=== PATIENT | male | born 1930 | race Caucasian/White ===

== ENCOUNTER 2017-03-14 08:32 | Inpatient (IN) | payer MEDICARE ==
[~2017-03-14] VITALS: Ht 182.9 cm; Wt 75.7 kg
[~2017-03-14 08:32] MED LIST: ASPI-612 PO
[2017-03-14] MEDS ORDERED: ONDANSETRON PF 4 MG/2 ML VIAL. IV ONE (08:45)
[2017-03-14] MEDS ORDERED: IV NORMAL SALINE 1000ML BAG 1,000 ML IV ONE ×2 (08:45→11:00)
--- NOTE | 2017-03-14 09:17 | PHYS DOC ---
Past Medical History Past Medical History: Arthritis, Cancer, Hypertension Past Surgical History: Cholecystectomy, Other Additional Past Surgical Histo: back surgery, pin right arm Alcohol Use: Occasionally Drug Use: None Adult General Chief Complaint Chief Complaint: HEADACHE HPI HPI Patient is a 86 year old male with a history of TIA, hypertension, who presents today with a 6 out of 10 throbbing frontal headache that began this morning around 6:30 when he was getting out of bed. Patient states this headache is similar to the last time he had a stroke in 2013. Patient denies any vision changes, denies any new weakness. Denies any nausea vomiting but after the ED for a few minutes he started vomiting. Denies any chest pain or shortness of breath. Review of Systems Review of Systems Constitutional: Denies fever or chills [] Eyes: Denies change in visual acuity, redness, or eye pain [] HENT: Denies nasal congestion or sore throat [] Respiratory: Denies cough or shortness of breath [] Cardiovascular: No additional information not addressed in HPI [] GI: Patient is actively vomiting. Denies abdominal pain, bloody stools or diarrhea [] : Denies dysuria or hematuria [] Musculoskeletal: Denies back pain or joint pain [] Integument: Denies rash or skin lesions [] Neurologic: Reports frontal headache, denies focal weakness or sensory changes [ ] Endocrine: Denies polyuria or polydipsia [] Current Medications Current Medications Current Medications Medications (Trade) Dose Ordered Sig/Marlon Start Time Stop Time Status Last Admin Dose Admin Amlodipine Besylate (Norvasc) 10 mg 1X ONCE 03/14/17 09:30 03/14/17 09:33 DC 03/14/17 09:43 10 MG Ondansetron HCl (Zofran) 4 mg 1X ONCE 03/14/17 08:45 03/14/17 08:49 DC 03/14/17 09:42 4 MG Sodium Chloride 1,000 ml @ 1,000 mls/hr 1X ONCE 03/14/17 08:45 03/14/17 09:44 DC 03/14/17 09:42 1,000 MLS/HR Allergies Allergies Allergies Coded Allergies Type Severity Reaction Last Updated Verified No Known Drug Allergies 02/09/14 No Physical Exam Physical Exam Constitutional: Well developed, well nourished, no acute distress, non-toxic appearance. [] HENT: Normocephalic, atraumatic, bilateral external ears normal, oropharynx moist, no oral exudates, nose normal. [] Eyes: PERRLA, EOMI, conjunctiva normal, no discharge. [] Neck: Normal range of motion, no tenderness, supple, no stridor. [] Cardiovascular:Heart rate regular rhythm, no murmur [] Lungs & Thorax: Bilateral breath sounds clear to auscultation [] Abdomen: Patient is actively vomiting on arrival to his room. Bowel sounds normal, soft, no tenderness, no masses, no pulsatile masses. [] Skin: Warm, dry, no erythema, no rash. [] Back: No tenderness, no CVA tenderness. [] Extremities: No tenderness, no cyanosis, no clubbing, ROM intact, no edema. [] Neurologic: Alert and oriented X 3, normal motor function, normal sensory function, no focal deficits noted. Cranial nerves II through XII intact. 5 out of 5 bilateral upper and lower extremity strength. Psychologic: Affect normal, judgement normal, mood normal. [] Current Patient Data Vital Signs Vital Signs Date Time Temp Pulse Resp B/P (MAP) Pulse Ox O2 Delivery O2 Flow Rate FiO2 03/14/17 09:43 47 186/80 03/14/17 08:39 97.8 16 100 Room Air 97.8 Lab Values Laboratory Tests Test 03/14/17 08:55 White Blood Count 9.0 x10^3/uL (4.0-11.0) Red Blood Count 3.71 x10^6/uL (4.30-5.70) L Hemoglobin 11.8 g/dL (13.0-17.5) L Hematocrit 34.7 % (39.0-53.0) L Mean Corpuscular Volume 94 fL (79-100) Mean Corpuscular Hemoglobin 32 pg (25-35) Mean Corpuscular Hemoglobin Concent 34 g/dL (31-37) Red Cell Distribution Width 13.9 % (11.5-14.5) Platelet Count 178 x10^3/uL (140-400) Neutrophils (%) (Auto) 77 % (31-73) H Lymphocytes (%) (Auto) 13 % (24-48) L Monocytes (%) (Auto) 8 % (0-9) Eosinophils (%) (Auto) 2 % (0-3) Basophils (%) (Auto) 1 % (0-3) Neutrophils # (Auto) 7.0 x10^3uL (1.8-7.7) Lymphocytes # (Auto) 1.1 x10^3/uL (1.0-4.8) Monocytes # (Auto) 0.7 x10^3/uL (0.0-1.1) Eosinophils # (Auto) 0.2 x10^3/uL (0.0-0.7) Basophils # (Auto) 0.0 x10^3/uL (0.0-0.2) Prothrombin Time 13.5 SEC (11.7-14.0) Prothrombin Time INR 1.1 (0.8-1.1) PTT 35 SEC (24-38) Sodium Level 134 mmol/L (136-145) L Potassium Level 3.8 mmol/L (3.5-5.1) Chloride Level 96 mmol/L (98-107) L Carbon Dioxide Level 29 mmol/L (21-32) Anion Gap 9 (6-14) Blood Urea Nitrogen 29 mg/dL (8-26) H Creatinine 1.4 mg/dL (0.7-1.3) H Estimated GFR (Cockcroft-Gault) 47.9 Glucose Level 112 mg/dL (70-99) H Calcium Level 9.7 mg/dL (8.5-10.1) Creatine Kinase 112 U/L (39-308) Creatine Kinase MB (Mass) 2.3 ng/mL (0.0-3.6) Creatine Kinase MB Relative Index 2.1 % (0-4) Troponin I Quantitative < 0.017 ng/mL (0.000-0.055) Laboratory Tests 03/14/17 08:55 Laboratory Tests 03/14/17 08:55 EKG EKG 08:42 Interpreted by , Sinus rhythm, HR 56, no STEMI.[] Radiology/Procedures Radiology/Procedures []PROCEDURE: CT CODE STROKE HEAD WO CT of the head without contrast, 03/14/2017: History: Headache, hypertension Comparison is made to a study from 02/09/2014. The ventricles are within normal limits in size. There is no shift of the midline structures. There is no evidence of acute intracranial hemorrhage or mass effect. There is a small unchanged lucency along the superior aspect of the right basal ganglia compatible with an old infarct. There is calcific plaquing of the distal internal carotid and vertebral arteries. IMPRESSION: 1. Small right basal ganglia region infarct. 2. No new intracranial abnormality is detected. PQRS Compliance Statement: One or more of the following individualized dose reduction techniques were utilized for this examination: 1. Automated exposure control 2. Adjustment of the mA and/or kV according to patient size 3. Use of iterative reconstruction technique DICTATED and SIGNED BY: BOBBY CELESTE MD DATE: 03/14/17910 CC: PRICILA BROOKS APRN; NESSA ROONEY Jr, MD ~ PROCEDURE: PORTABLE CHEST 1V Portable chest, 03/14/2017: History: Headache The heart size and pulmonary vascularity are normal. There is calcific plaquing of the aorta. No pulmonary infiltrates are seen. There is no evidence of pleural fluid. Moderate spurring is present in the spine. IMPRESSION: No acute cardiopulmonary abnormality is detected. DICTATED and SIGNED BY: BOBBY CELESTE MD DATE: 03/14/17915 CC: PRICILA BROOKS APRN; NESSA ROONEY Jr, MD ~ Course & Med Decision Making Course & Med Decision Making Pertinent Labs and Imaging studies reviewed. (See chart for details) This is a 86-year-old male patient presented to the ED today with a 6 out of 10 frontal headache that began this morning around 6:30. Patient has no neurological deficits but was vomiting when he got in his room. He was given Zofran and his vomiting stopped. 913 Ct head results from radiologist small old basal ganglion infarct otherwise no acute findings CBC no acute findings, BMP with creatinine of 1.4 with BUN of 29 likely dehydration related. Patient was started on IV fluids. Consulted with Dr. Kang who accepted patient for admission consult placed for neurologist. Dragon Disclaimer Dragon Disclaimer This electronic medical record was generated, in whole or in part, using a voice recognition dictation system. Departure Departure Impression: Primary Impression: Headache Additional Impressions: Accelerated hypertension Acute renal failure Disposition: ADMITTED INPATIENT Condition: STABLE Referrals: NESSA ROONEY Jr, MD (PCP) Problem Qualifiers Primary Impression: Headache Headache type: unspecified Headache chronicity pattern: acute headache Intractability: not intractable Qualified Codes: R51 - Headache Additional Impressions: Acute renal failure Acute renal failure type: unspecified Qualified Codes: N17.9 - Acute kidney failure, unspecified PRICILA BROOKS APRN Mar 14, 2017 09:17
[2017-03-14 09:21] LABS: BASO % 1 % (0-3); EOS % 2 % (0-3); HEMATOCRIT 34.7 % (39.0-53.0); HEMOGLOBIN 11.8 g/dL (13.0-17.5); LYMPH # 1.1 x10^3/uL (1.0-4.8); LYMPH % 13 % (24-48); MEAN CORPUSCULAR HEMOGLOBIN 32 pg (25-35); MEAN CORPUSCULAR HGB CONC 34 g/dL (31-37); MEAN CORPUSCULAR VOLUME 94 fL (79-100); MONO % 8 % (0-9); NEUT % 77 % (31-73); PLATELET COUNT 178 x10^3/uL (140-400); RED BLOOD COUNT 3.71 x10^6/uL (4.30-5.70); RED CELL DISTRIBUTION WIDTH 13.9 % (11.5-14.5)
[2017-03-14] MEDS ORDERED: amLODIPine BESYLATE 5 MG TABLET PO ONE (09:30)
[2017-03-14 09:32] LABS: CALCIUM 9.7 mg/dL (8.5-10.1); CREATININE 1.4 mg/dL (0.7-1.3); GFR 47.9; POTASSIUM 3.8 mmol/L (3.5-5.1)
[2017-03-14 09:40] LABS: INR 1.1 (0.8-1.1); PROTHROMBIN TIME PATIENT 13.5 SEC (11.7-14.0)
[2017-03-14 09:50] LABS: CKMB MASS 2.3 ng/mL (0.0-3.6)
[2017-03-14] MEDS ORDERED: ONDANSETRON PF 4 MG/2 ML VIAL. IV PRN (11:00)
[2017-03-14] MEDS ORDERED: ACETAMINOPHEN 325 MG TABLET. PO PRN (11:00)
--- NOTE | 2017-03-14 12:22 | RAD ---
MR of the brain, 03/14/2017: History: Headache, nausea and vomiting Imaging was performed in axial, sagittal and coronal planes utilizing a variety of imaging sequences including T1-weighted, T2-weighted, diffusion-weighted, FLAIR and T2* gradient-echo sequences. There is mild cerebral atrophy. The ventricles are within normal limits in size. There is no shift of the midline structures. There is a small focus of abnormal signal along the superior aspect of the right basal ganglia compatible with an old infarct. A couple of tiny foci of abnormal signal are seen in the deep white matter bilaterally on the FLAIR sequence. No restricted diffusion is seen in these regions. These are common findings in older patients and typically reflect chronic ischemic change related to the deep perforating arteries. The cerebellum and brainstem are unremarkable. No abnormal extra-axial fluid collection or mass is seen. IMPRESSION: 1. 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 2. Minimal deep white matter signal abnormalities compatible with chronic ischemic change. 3. No acute intracranial abnormality is detected.
[2017-03-14 12:30] VITALS: BP 146/67
--- NOTE | 2017-03-14 12:30 | EKG ---
[facility] [address] [place] [address] Test Date: 2017-03-14 Test Time: 08:48:25 Pat Name: ANDREZ TO Department: Room: 588 1 Gender: M Body Care Manager: : [id number] Requested By: PRICILA BROOKS Order Number: [id number] Reading MD: Andrez Jack Measurements Intervals [place] Rate: 56 P: 59 TX: 188 QRS: 22 QRSD: 86 T: 63 QT: 446 QTc: 433 Interpretive Statements SINUS RHYTHM T ABNORMALITY IN LATERAL LEADS RI6.01 Unconfirmed report Electronically Signed On 04-01-2017 17:23:44 CDT by Andrez Jack
[2017-03-14] MEDS ORDERED: SIMV20TA3 PO (13:38)
[2017-03-14] MEDS ORDERED: PENI500T PO (13:38)
[2017-03-14] MEDS ORDERED: AMLO5TAB2 PO (13:38)
[2017-03-14] MEDS ORDERED: OLME1TAB PO (13:38)
[2017-03-14] MEDS ORDERED: AMOX1TAB11 PO (13:38)
[2017-03-14 15:00] VITALS: BP 145/70
--- NOTE | 2017-03-14 15:22 | PDOC2 ---
NEUROLOGY CONSULT Date of Admission Date of Admission Full Report Dictated DATE: 03/14/17 TIME: 15:20 Current Medications Current Medications Current Medications Ondansetron HCl (Zofran) 4 mg 1X ONCE IV Last administered on 03/14/17 09:42 ; Start 03/14/17 at 08:45; Stop 03/14/17 at 08:49; Status DC Sodium Chloride 1,000 ml @ 1,000 mls/hr 1X ONCE IV Last administered on 09:42; Start 03/14/17 at 08:45; Stop 03/14/17 at 09:44; Status DC Amlodipine Besylate (Norvasc) 10 mg 1X ONCE PO Last administered on 03/14/17 09:43; Start 03/14/17 at 09:30; Stop 03/14/17 at 09:33; Status DC Ondansetron HCl (Zofran) 4 mg PRN Q8HRS PRN IV NAUSEA/VOMITING; Start 03/14/17 at 11:00; Stop 03/15/17 at 10:59 Acetaminophen (Tylenol) 650 mg PRN Q4HRS PRN PO FEVER; Start 03/14/17 at 11:00 ; Stop 03/15/17 at 10:59 Sodium Chloride 1,000 ml @ 75 mls/hr 1X ONCE IV Last administered on 13:23; Start 03/14/17 at 11:00; Stop 03/15/17 at 00:19 Active Scripts Active Aspirin Ec (Aspirin) 81 Mg Tablet.dr 1 Tab PO DAILY Reported Amox Tr-K Clv 875-125 Mg Tab (Amoxicillin/Potassium Clav) 1 Each Tablet 1 Tab PO BID 3 Days Simvastatin 20 Mg Tablet 20 Mg PO HS Olmesartan-Hctz 40-25 mg Tab (Olmesartan/Hydrochlorothiazide) 1 Each Tablet 1 Tab PO DAILY Amlodipine Besylate 5 Mg Tablet 5 Mg PO DAILY Allergies Allergies: Coded Allergies: No Known Drug Allergies (Unverified , 02/09/14) Vitals VITALS Vital Signs Date Time Temp Pulse Resp B/P (MAP) Pulse Ox O2 Delivery O2 Flow Rate FiO2 03/14/17 14:34 Room Air 03/14/17 12:30 97.7 50 16 146/67 (93) 97 97.7 Labs Labs Laboratory Tests Test 10/8/17 08:55 White Blood Count 9.0 x10^3/uL (4.0-11.0) Red Blood Count 3.71 x10^6/uL (4.30-5.70) Hemoglobin 11.8 g/dL (13.0-17.5) Hematocrit 34.7 % (39.0-53.0) Mean Corpuscular Volume 94 fL (79-100) Mean Corpuscular Hemoglobin 32 pg (25-35) Mean Corpuscular Hemoglobin Concent 34 g/dL (31-37) Red Cell Distribution Width 13.9 % (11.5-14.5) Platelet Count 178 x10^3/uL (140-400) Neutrophils (%) (Auto) 77 % (31-73) Lymphocytes (%) (Auto) 13 % (24-48) Monocytes (%) (Auto) 8 % (0-9) Eosinophils (%) (Auto) 2 % (0-3) Basophils (%) (Auto) 1 % (0-3) Neutrophils # (Auto) 7.0 x10^3uL (1.8-7.7) Lymphocytes # (Auto) 1.1 x10^3/uL (1.0-4.8) Monocytes # (Auto) 0.7 x10^3/uL (0.0-1.1) Eosinophils # (Auto) 0.2 x10^3/uL (0.0-0.7) Basophils # (Auto) 0.0 x10^3/uL (0.0-0.2) Prothrombin Time 13.5 SEC (11.7-14.0) Prothromb Time International Ratio 1.1 (0.8-1.1) Activated Partial Thromboplast Time 35 SEC (24-38) Sodium Level 134 mmol/L (136-145) Potassium Level 3.8 mmol/L (3.5-5.1) Chloride Level 96 mmol/L (98-107) Carbon Dioxide Level 29 mmol/L (21-32) Anion Gap 9 (6-14) Blood Urea Nitrogen 29 mg/dL (8-26) Creatinine 1.4 mg/dL (0.7-1.3) Estimated GFR (Cockcroft-Gault) 47.9 Glucose Level 112 mg/dL (70-99) Calcium Level 9.7 mg/dL (8.5-10.1) Creatine Kinase 112 U/L (39-308) Creatine Kinase MB (Mass) 2.3 ng/mL (0.0-3.6) Creatine Kinase MB Relative Index 2.1 % (0-4) Troponin I Quantitative < 0.017 ng/mL (0.000-0.055) Laboratory Tests Test 03/14/17 08:55 White Blood Count 9.0 x10^3/uL (4.0-11.0) Red Blood Count 3.71 x10^6/uL (4.30-5.70) Hemoglobin 11.8 g/dL (13.0-17.5) Hematocrit 34.7 % (39.0-53.0) Mean Corpuscular Volume 94 fL (79-100) Mean Corpuscular Hemoglobin 32 pg (25-35) Mean Corpuscular Hemoglobin Concent 34 g/dL (31-37) Red Cell Distribution Width 13.9 % (11.5-14.5) Platelet Count 178 x10^3/uL (140-400) Neutrophils (%) (Auto) 77 % (31-73) Lymphocytes (%) (Auto) 13 % (24-48) Monocytes (%) (Auto) 8 % (0-9) Eosinophils (%) (Auto) 2 % (0-3) Basophils (%) (Auto) 1 % (0-3) Neutrophils # (Auto) 7.0 x10^3uL (1.8-7.7) Lymphocytes # (Auto) 1.1 x10^3/uL (1.0-4.8) Monocytes # (Auto) 0.7 x10^3/uL (0.0-1.1) Eosinophils # (Auto) 0.2 x10^3/uL (0.0-0.7) Basophils # (Auto) 0.0 x10^3/uL (0.0-0.2) Prothrombin Time 13.5 SEC (11.7-14.0) Prothromb Time International Ratio 1.1 (0.8-1.1) Activated Partial Thromboplast Time 35 SEC (24-38) Sodium Level 134 mmol/L (136-145) Potassium Level 3.8 mmol/L (3.5-5.1) Chloride Level 96 mmol/L (98-107) Carbon Dioxide Level 29 mmol/L (21-32) Anion Gap 9 (6-14) Blood Urea Nitrogen 29 mg/dL (8-26) Creatinine 1.4 mg/dL (0.7-1.3) Estimated GFR (Cockcroft-Gault) 47.9 Glucose Level 112 mg/dL (70-99) Calcium Level 9.7 mg/dL (8.5-10.1) Creatine Kinase 112 U/L (39-308) Creatine Kinase MB (Mass) 2.3 ng/mL (0.0-3.6) Creatine Kinase MB Relative Index 2.1 % (0-4) Troponin I Quantitative < 0.017 ng/mL (0.000-0.055) Assessment/Plan Assessment/Plan Patient is a very pleasant 86-year-old man who awoke with headache. His blood pressure was critically elevated in the emergency room but has come down to a better range. He has neurologic evidence for an advanced peripheral polyneuropathy which likely contributes to his gait disturbance. He also has dizziness when he is upright which may be more of a disequilibrium. I will order orthostatic blood pressures. I have ordered labs to look into temporal arteritis, mixed connective tissue disease as well as deficiency states that could contribute to neuropathy. I'm relieved that the MRI brain did not reveal evidence for an acute process. The CT scan of the head did not reveal intracranial hemorrhage. I have asked physical therapy to evaluate and make recommendations regarding gait disturbance and safety. CAMPOS HO MD Mar 14, 2017 15:22
--- NOTE | 2017-03-14 16:07 | CONS ---
DATE OF CONSULTATION: 03/14/2017 REFERRING PHYSICIAN: Dr. Joseph. REASON FOR CONSULTATION: Severe headache and impaired balance. HISTORY OF PRESENT ILLNESS: The patient is a very pleasant 86-year-old man who presented to [facility] Emergency Room because of headache. He awoke this morning around 6:15 a.m. and noticed a bad headache when he turned. He put a cloth on his head and took some Tylenol. He waited a while but the headache did not respond and only seemed to worsen. He then took 2 Aleve, which also was equally not helpful. This was not associated with light or sound sensitivity. The pain was bifrontal. He did not have any nausea or vomiting. He has not recently been ill. He decided to come to the Emergency Room because he did experience a headache with a stroke that occurred 4 years ago. He notes residual weakness on the right side of his body from the stroke. He recovered fairly well. This headache has not been associated with focal numbness or weakness. He has had impaired balance for a number of years and this is no worse than usual. He will typically use a walking stick to get around. He has occasional falls, but tries to be careful. If he is going to fall, it is because he has tendency to go backwards. He denies any recent illness such as cough or cold. He does report longstanding prostate cancer, but this has not changed. He does receive Lupron injections every 3 months. PAST MEDICAL HISTORY: 1. Prostate cancer diagnosed in 05/1998. 2. Arthritis. 3. Hypertension. 4. Cholecystectomy. 5. Lower back surgery. 6. Pinning of the right arm. ALLERGIES: No known allergies to drugs. MEDICATIONS PRIOR TO ADMISSION: Amlodipine 5 mg, Augmentin 875 mg twice per day for a tooth infection, aspirin 81 mg, olmesartan/hydrochlorothiazide daily and simvastatin 20 mg. FAMILY HISTORY: His father of a myocardial infarction at 75 years of age. His mother at 84 years, possibly with heart disease. She had diffuse disabling arthritis. Prostate cancer runs strongly in his family. SOCIAL HISTORY: He is and has five children. He has many grandchildren and great grandchildren. Many were in the room as I was doing my evaluation. He is a lifelong nonsmoker. He rarely drinks alcohol and does not use recreational drugs. REVIEW OF SYSTEMS: He does not normally experience headaches. This was a bifrontal severe headache. He does not have associated photophobia, phonophobia, nausea, vomiting or any other sensitivities. He feels his vision is a little impaired, although it is helped by glasses. His hearing is slightly diminished. He has not had any nose or sinus trouble. He has not had any cognitive loss that he is aware of. He has been able to swallow without choking. He has not had shortness of breath, cough or cold. There has not been chest or abdominal pain. He does have some arthritic pain. He has had no fevers or rash. Denies any gastrointestinal or genitourinary complaints other than longstanding prostate cancer for which he is on Lupron. He reports that his PSAs have remained low. He does not complain of easy bruising or bleeding. He does complain of difficulty with balance for the last 5 years. He is not aware of any numbness. He denies any history of diabetes. He denies any psychiatric concerns. PHYSICAL EXAMINATION: VITAL SIGNS: The blood pressure was 146/67, pulse 50, respirations 16, temperature 97.7 degrees Fahrenheit. Oximetry was 97% on room air. His weight was 173 pounds and height 72 inches with a calculated body mass index of 23.5. GENERAL: He was alert, awake and cooperative. Speech was fluent and clear. He had a good fund of recent and remote knowledge. Attention and concentration was intact. He appeared well groomed and well nourished. He was well oriented. NEUROLOGIC: Examination of the cranial nerves revealed visual carrasco were full to confrontation. Extraocular movements were intact. The eyes were conjugate. Pursuit movements were smooth and saccadic eye movements were without dysmetria. There was no nystagmus. Pupils were 3 mm and reactive. Funduscopic exam did not reveal papilledema, exudate or hemorrhage. Facial sensation was intact bilaterally. The muscles of mastication and facial expression were powerful symmetrically. Hearing was intact to finger rub bilaterally. The palate arched symmetrically and the tongue was midline with full range of motion. Sternocleidomastoid and trapezius were powerful. Muscle bulk and tone was normal. There was no arm drift. There was bilateral leg drifting downwards. Power was full and symmetric in the upper extremities. In the lower extremities, hip flexion and extension and knee flexion and extension were fairly powerful bilaterally. There was weakness with dorsi and plantar flexion bilaterally. The right leg may have been slightly weaker than the left. Reflexes were 1/4 in the arms, but absent at the knees and ankles. The toes were not upgoing. Coordination testing with [id number], [id number], fine motor and rapid alternating movements was fairly well performed. The sensory exam was intact to pain, light touch, proprioception, graphesthesia, cold thermal and vibration in the upper extremities. Lower extremities had marked sensory shading. Vibration was perceived half way up the calf, but better at the knees. Cold thermal was better perceived 3/[address] up the calf. Sharp was better perceived at the level of the knee. Light touch was better perceived at the level of the knee. Proprioception was diminished in the feet. His sitting balance was very good. When he stood, he was off balance. He was able to take steps forward and backward with some balance support. He could not stand on heels or toes very well. He was too unstable for attempting tandem walk. He seemed unstable even for attempting Romberg stance. Auscultation of the carotid arteries did not reveal a bruit. Heart's rhythm was regular without a murmur. Peripheral pulse, radial was strong and regular in the left wrist, but the radial pulse was not palpable in the right wrist. The ulnar pulse was palpated. Compression of both vessels on the wrist with release then of the radial did not cause the hand to pink up, but release of the ulnar did. Peripheral pulses were not well palpated in the feet. He had coolness of his extremities. There was no edema or cyanosis, but the skin of the feet appeared somewhat wrinkled as if there had been edema that had recently resolved. LABORATORY DATA: CBC revealed a normal white blood cell count and platelet count. Hemoglobin was low at 11.8 and hematocrit at 34.7. Sodium was low at 134, potassium normal, chloride low at 96. BUN was 29 and creatinine elevated to 1.4 with a calculated GFR of 47.9. Glucose was elevated to 112. Calcium was normal. CPK and troponin were not elevated. PT/INR was 1.1 and PTT was 35. CT scan of the head was performed this morning and revealed a small right basal ganglia stroke, but no acute process. There was some calcified plaque involving the internal carotid and vertebral arteries. MRI of the brain was performed this afternoon, again revealing the old basal ganglia infarction. This was on the right side. There were a few foci of abnormal signal in the deep white matter seen on FLAIR. There was no evidence for an acute stroke. There was no tumor. Chest x-ray performed this morning revealed no acute cardiopulmonary process. IMPRESSION: The patient is a very pleasant 86-year-old man who presented initially with critically elevated blood pressure at 225/97. The blood pressure has come down to 146/67 at the most recent recording. It is possible the critical pressures could have contributed to some headache. He may have a toxic headache from a systemic virus. It is not clear if he has longstanding uncontrolled blood pressures. I do not, however, see evidence of stroke contributing to the situation. He has evidence of a prior stroke, but no evidence of an acute stroke. I am relieved that there is no hemorrhage or tumor as well. He has diffuse arthritis with limited range of motion of his neck and some tightness in the neck muscles, which may also contribute to the headache. His family expressed some concerns regarding dizziness. I will order orthostatic blood pressure measurements. He does have clinical evidence for a very advanced peripheral neuropathy, which likely contributes to his very impaired balance. He would likely be well served by a 4-wheel walker instead of a walking stick. His daughter who is a nurse at [facility] specifically requested a Cardiology consult. This may be a bit premature since there are no obvious cardiac issues, but I will leave this to the discretion of the admitting physician. We can consult Physical Therapy for assessment of gait. I will also order labs to look for reversible and treatable processes that might contribute to the peripheral polyneuropathy. I will also order sed rate and CRP to look for any evidence of a temporal arteritis or an inflammatory process. Order an LEONID to look for mixed connective tissue disease, which might contribute. I appreciate greatly being involved in his care. CAMPOS HO MD DR: LILIANA/sharon JOB#: [id number] / [id number] ANNMARIE Conde MD, URSULA MD SHI, FERILYN MD
[2017-03-14 16:09] LABS: FREE T4 1.02 ng/dL (0.76-1.46)
[2017-03-14] MEDS: amLODIPine BESYLATE 5 MG TABLET PO SCH (17:35)
[2017-03-14] MEDS: ASPIRIN ENTERIC COATED 81 MG TABLET.DR. PO SCH (17:42)
[2017-03-14] MEDS: hydroCHLOROthiazide 25 MG TABLET PO SCH (17:43)
[2017-03-14] MEDS: LOSARTAN POTASSIUM 50 MG TABLET. PO SCH (17:43)
[2017-03-14 19:00] VITALS: BP 135/57
--- NOTE | 2017-03-14 20:37 | HP ---
ADMIT DATE: 03/14/2017 CHIEF COMPLAINT: Severe headache and imbalance. HISTORY OF PRESENT ILLNESS: The patient is an 86-year-old gentleman who presented to the Emergency Room with severe headache. He relates that he typically does not have headaches, so that in itself is somewhat unusual. He however awoke this morning a little after 6 with a severe headache when he turned over in bed. Took some Tylenol, which really did not seem to help at all. After a while, took two Aleve, which was not yielding any results either. He was concerned as he had a stroke about 4 years ago, which was heralded by a severe headache and he feared same may be going on now. He however denies any new weakness or neurological deficit other than the headache. He has persistent mild right-sided weakness from this distant stroke. In the Emergency Room, he was found with hypertensive urgency and therefore admitted for further workup and management. PAST MEDICAL HISTORY: Prostate cancer, on Lupron and bisphosphonate, initially diagnosed in 1997; hypertension and arthritis status post lower back surgery as well as arm surgery. FAMILY HISTORY: Positive for CAD in father, possibly in mother as well. SOCIAL HISTORY: , living with his , 5 children are close by. Never smoked. Denies any toxic habits. ALLERGIES: No known drug allergies. MEDICATIONS: MAR reconciled with home medications. REVIEW OF SYSTEMS: The patient relates that his headache is now completely resolved after receiving medications in the Emergency Room. He denies any new neurological symptoms including vision changes, weakness or numbness. Rest of organ system review is negative. PHYSICAL EXAMINATION: VITAL SIGNS: From today show a blood pressure of 146/67, heart rate of 50, respiratory rate at 16. He is afebrile. GENERAL: This is an 86-year-old gentleman, well nourished, in no acute distress. Alert and oriented. HEENT: Shows no scleral icterus. NECK: Supple. LUNGS: Clear to auscultation. HEART: Slightly bradycardic. No murmurs appreciated. ABDOMEN: Has positive bowel sounds. Soft and nontender. EXTREMITIES: Show no edema. SKIN: Warm, soft and dry. LABORATORIES: CBC with the WBC of 9, hemoglobin 11.8 and platelets of 178. Chemistries with the BUN and creatinine of 29 and 1.4. Sodium at 134 and potassium 3.8. Troponin negative. TSH is 0.8. IMAGING: CT of the head in Emergency Room, noncontrast, was showing a small right basal ganglia region infarct. No new intracranial abnormality detected. ASSESSMENT AND PLAN: The patient is an 86-year-old gentleman who presents with severe headache of unknown etiology. Blood pressure in the Emergency Room was in the 180s, which really would not necessarily explain his headaches. These however have now resolved. Blood pressure likewise is back under control. We will await Neurology consult for further guidance. The patient is bradycardic as well, although apparently asymptomatic from that standpoint. We will obtain cardiology consult in the morning. The patient appears volume contracted by labs. We will hold hydrochlorothiazide portion of his blood pressure medications and reevaluate in the morning. ARASH LEE MD DR: UR/nts JOB#: [id number] / [id number] LAKSHMI Chadwick MD MTDD
[2017-03-14] MEDS ORDERED: SIMVASTATIN 20 MG TABLET PO SCH (21:00)
[2017-03-14 23:00] VITALS: BP 134/58
[2017-03-14] MEDS: POLYVINYL ALCOHOL 1.4% OPHTH SOLUTION 15ML BOTTLE. OU PRN (23:56)
[2017-03-15 03:00] VITALS: BP 149/57
[2017-03-15 03:50] LABS: BASO % 0 % (0-3); EOS % 2 % (0-3); HEMATOCRIT 30.4 % (39.0-53.0); HEMOGLOBIN 10.3 g/dL (13.0-17.5); LYMPH # 1.5 x10^3/uL (1.0-4.8); LYMPH % 23 % (24-48); MEAN CORPUSCULAR HEMOGLOBIN 32 pg (25-35); MEAN CORPUSCULAR HGB CONC 34 g/dL (31-37); MEAN CORPUSCULAR VOLUME 94 fL (79-100); MONO % 7 % (0-9); NEUT % 67 % (31-73); PLATELET COUNT 159 x10^3/uL (140-400); RED BLOOD COUNT 3.23 x10^6/uL (4.30-5.70); RED CELL DISTRIBUTION WIDTH 14.1 % (11.5-14.5); WHITE BLOOD COUNT 6.4 x10^3/uL (4.0-11.0)
[2017-03-15 04:12] LABS: ALBUMIN 3.4 g/dL (3.4-5.0); ALBUMIN/GLOBULIN RATIO 1.2 (1.0-1.7); CALCIUM 8.9 mg/dL (8.5-10.1); CREATININE 1.2 mg/dL (0.7-1.3); GFR 57.3; POTASSIUM 4.6 mmol/L (3.5-5.1); TOTAL BILIRUBIN 0.4 mg/dL (0.2-1.0); TOTAL PROTEIN 6.3 g/dL (6.4-8.2)
[2017-03-15] MEDS: POLYVINYL ALCOHOL 1.4% OPHTH SOLUTION 15ML BOTTLE. OU PRN (05:39)
[2017-03-15 07:00] VITALS: BP 119/76
[2017-03-15] MEDS: ASPIRIN ENTERIC COATED 81 MG TABLET.DR. PO SCH (08:48)
[2017-03-15] MEDS: amLODIPine BESYLATE 5 MG TABLET PO SCH (08:48)
[2017-03-15] MEDS: LOSARTAN POTASSIUM 50 MG TABLET. PO SCH (08:49)
[2017-03-15] MEDS: hydroCHLOROthiazide 25 MG TABLET PO SCH (08:49)
[2017-03-15 09:15] LABS: VITAMIN-B12 331 pg/mL (247-911)
[2017-03-15 10:13] LABS: FOLATE > 20.00 ng/ml (3.2-20.0)
[2017-03-15 11:00] VITALS: BP 141/70
--- NOTE | 2017-03-15 15:41 | PDOC ---
PROGRESS NOTES Assessment Assessment IMPRESSION: Hypertensive emergency, SBP 225 mmHg. Hypertensive encephalopathy. Headache. Dizziness. Gait instability. HTN HLD. 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 No evidence of acute CVA this time. RECOMMENDATIONS/PLAN: BP control. Continue ASA daily. He has been on 81 mg daily. Continue Zocor HS. Lab: see orders. FU with PCP. FU with neurology as needed. PAST MEDICAL HISTORY: 1. Prostate cancer diagnosed in 05/1998. 2. Arthritis. 3. Hypertension. 4. Cholecystectomy. 5. Lower back surgery. 6. Pinning of the right arm. ALLERGIES: No known allergies to drugs. MEDICATIONS PRIOR TO ADMISSION: Amlodipine 5 mg, Augmentin 875 mg twice per day for a tooth infection, aspirin 81 mg, olmesartan/hydrochlorothiazide daily and simvastatin 20 mg. FAMILY HISTORY: His father of a myocardial infarction at 75 years of age. His mother at 84 years, possibly with heart disease. She had diffuse disabling arthritis. Prostate cancer runs strongly in his family. SOCIAL HISTORY: He is and has five children. He has many grandchildren and great grandchildren. Many were in the room as I was doing my evaluation. He is a lifelong nonsmoker. He rarely drinks alcohol and does not use recreational drugs. REVIEW OF SYSTEMS: Constitutional: No malnutrition, weight loss, cachexia. Head: No traumatic brain or head injury. Skin: No edema, or rash. Ear: No infection. Eyes: No vision loss, or diplopia. Nose: No bleeding or purulent discharges. Hearing: Hearing loss. Neck: No injury. Cardiac: HTN, HLD Pulmonary: No COPD. GI: No GI Ulcer, GI bleeding Urinary/genital: No dysuria, incontinence, urinary retention. Endocrine: No cousin face, craniofacial dysmorphism, polydactyly. Skeletomuscular: No muscular atrophy, deformity. Neurological: see HP. Psychiatric: Denies drug use/abuse. Otherwise, not [id number] review of systems. PHYSICAL EXAMINATION: General appearance in no acute distress. HEENT: Normocephalic and nontraumatic. Eyes, nose, ears, and throat are unremarkable. Hearing decrease. Neck is supple. No lymphadenopathy. No Crepitus. Cardiovascular: S1, S2, regular rate and rhythm. Pulmonary: Clear to auscultation bilaterally. Abdomen: Bowel sounds are positive. Extremities: No rash, lesions, or edema. No restriction of range of motion NEUROLOGICAL EXAMINATION: Alert. Oriented to time, place and person. PERRL. EOMI. CN: no focal findings. Muscle tone: within normal. Muscle strength: 5 DTR: 2 Plantar reflex: Flexor response bilaterally Gait: not examined in bed.. Sensory exam: no abnormal findings. No cerebellar signs elicited. F-T-N test accurate. Objective Objective Vital Signs Date Time Temp Pulse Resp B/P (MAP) Pulse Ox O2 Delivery O2 Flow Rate FiO2 03/15/17 11:00 98.1 61 18 141/70 (93) 92 Room Air 98.1 Intake and Output 03/16/17 07:00 Intake Total 1000 ml Balance 1000 ml IV Total 1000 ml Vitals Signs Vitals VS - Last 72 Hours, by Label Date Time Temp Pulse Resp B/P (MAP) Pulse Ox O2 Delivery O2 Flow Rate FiO2 03/15/17 11:00 98.1 61 18 141/70 (93) 92 Room Air 98.1 03/15/17 08:49 67 119/76 03/15/17 08:48 67 119/76 03/15/17 07:00 97.7 67 18 119/76 (90) 96 Room Air 97.7 03/15/17 03:00 98.3 60 17 149/57 (87) 94 Room Air 98.3 03/14/17 23:00 98.3 95 18 134/58 (83) 95 Room Air 98.3 03/14/17 20:22 Room Air 03/14/17 19:00 97.0 62 19 135/57 (83) 96 Room Air 97.0 03/14/17 17:43 55 145/70 03/14/17 17:35 55 145/70 03/14/17 15:00 98.2 55 16 145/70 (95) 96 Room Air 98.2 03/14/17 14:34 Room Air 03/14/17 12:30 97.7 50 16 146/67 (93) 97 Room Air 97.7 03/14/17 11:00 52 21 95 03/14/17 10:30 46 16 97 03/14/17 10:00 48 18 98 03/14/17 09:43 47 186/80 03/14/17 09:30 48 20 98 03/14/17 08:39 97.8 53 16 225/97 (139) 100 Room Air 97.8 Laboratory Laboratory Laboratory Tests Test 03/15/17 03:10 White Blood Count 6.4 x10^3/uL (4.0-11.0) Red Blood Count 3.23 x10^6/uL (4.30-5.70) Hemoglobin 10.3 g/dL (13.0-17.5) Hematocrit 30.4 % (39.0-53.0) Mean Corpuscular Volume 94 fL (79-100) Mean Corpuscular Hemoglobin 32 pg (25-35) Mean Corpuscular Hemoglobin Concent 34 g/dL (31-37) Red Cell Distribution Width 14.1 % (11.5-14.5) Platelet Count 159 x10^3/uL (140-400) Neutrophils (%) (Auto) 67 % (31-73) Lymphocytes (%) (Auto) 23 % (24-48) Monocytes (%) (Auto) 7 % (0-9) Eosinophils (%) (Auto) 2 % (0-3) Basophils (%) (Auto) 0 % (0-3) Neutrophils # (Auto) 4.3 x10^3uL (1.8-7.7) Lymphocytes # (Auto) 1.5 x10^3/uL (1.0-4.8) Monocytes # (Auto) 0.5 x10^3/uL (0.0-1.1) Eosinophils # (Auto) 0.1 x10^3/uL (0.0-0.7) Basophils # (Auto) 0.0 x10^3/uL (0.0-0.2) Sodium Level 136 mmol/L (136-145) Potassium Level 4.6 mmol/L (3.5-5.1) Chloride Level 102 mmol/L (98-107) Carbon Dioxide Level 29 mmol/L (21-32) Anion Gap 5 (6-14) Blood Urea Nitrogen 22 mg/dL (8-26) Creatinine 1.2 mg/dL (0.7-1.3) Estimated GFR (Cockcroft-Gault) 57.3 BUN/Creatinine Ratio 18 (6-20) Glucose Level 101 mg/dL (70-99) Calcium Level 8.9 mg/dL (8.5-10.1) Total Bilirubin 0.4 mg/dL (0.2-1.0) Aspartate Amino Transf (AST/SGOT) 21 U/L (15-37) Alanine Aminotransferase (ALT/SGPT) 23 U/L (16-63) Alkaline Phosphatase 51 U/L (46-116) Total Protein 6.3 g/dL (6.4-8.2) Albumin 3.4 g/dL (3.4-5.0) Albumin/Globulin Ratio 1.2 (1.0-1.7) Medication Medications Current Medications Amlodipine Besylate (Norvasc) 5 mg DAILY PO Last administered on 03/15/17 08: 48; Start 03/14/17 at 18:00; Stop 03/15/17 at 15:13; Status DC Artificial Tears (Artificial Tears) 1 drop PRN Q15MIN PRN OU DRY EYE Last administered on 03/15/17 05:39; Start 03/14/17 at 23:30; Stop 03/15/17 at 15:13 ; Status DC Aspirin (Ecotrin) 81 mg DAILY PO Last administered on 03/15/17 08:48; Start 03/14/17 at 18:00; Stop 03/15/17 at 15:13; Status DC Hydrochlorothiazide (Hydrodiuril) 25 mg DAILY PO Last administered on 08:49; Start 03/14/17 at 18:00; Stop 03/15/17 at 15:13; Status DC Losartan Potassium (Cozaar) 100 mg DAILY PO Last administered on 03/15/17 08: 49; Start 03/14/17 at 18:00; Stop 03/15/17 at 15:13; Status DC Simvastatin (Zocor) 20 mg HS PO Last administered on 03/14/17 20:19; Start at 21:00; Stop 03/15/17 at 15:13; Status DC Comment Review of Relevant I have reviewed the following items ilir (where applicable) has been applied. JOSEPH MARTINEZ MD Mar 15, 2017 15:41
--- NOTE | 2017-03-15 17:21 | DS ---
DATE OF DISCHARGE: 03/15/2017 CHIEF COMPLAINT: Severe headache, imbalance. HOSPITAL COURSE: The patient is an 86-year-old gentleman with past medical history of hypertension, arthritis and stroke, who presented to the hospital with severe headache and imbalance on walking. He was found with hypertensive urgency in the Emergency Room and admitted and treated with IV antihypertensives. Blood pressure actually was brought quickly under control and his headache spontaneously resolved as well. He had been worried as headache was the harbinger of his previous CA. However, on workup here, no recurrence could be discerned. He was monitored for 24 hours. He was found somewhat bradycardic and a cardiac consult was initiated on request of his granddaughter, a nurse at [facility]. The patient, however, stated that he is following up with a health lead at [facility] and would rather follow up there for issues. PHYSICAL EXAMINATION: VITAL SIGNS: Show a blood pressure of 141/70, heart rate of 61, respiratory rate at 18. He is afebrile. GENERAL: This is an 86-year-old well-nourished gentleman, alert and oriented, in no acute distress. LUNGS: Clear. HEART: Regular rate and rhythm. ABDOMEN: Has positive bowel sounds, soft, nontender. EXTREMITIES: Show no edema. DISCHARGE DIAGNOSES: Hypertensive urgency, bradycardia. DISCHARGE DISPOSITION: To home. DISCHARGE CONDITION: Improved. DISCHARGE MEDICATIONS: Please refer to MAR. DISCHARGE INSTRUCTIONS: The patient will follow up with PCP and his health lead as previously arranged. ARASH LEE MD DR: ALEXIS/nts JOB#: [id number] / [id number] LAKSHMI Chadwick MD
== END 2017-03-15 14:36 | disposition home or self-care (01) | DRG 78 ==
LOC: ER 08:32 → 5 SOUTH 10:41
PROVIDERS: ADMIT Internal Medicine Hematology & Oncology; ATTEND Internal Medicine Hematology & Oncology
DX: I67.4 Hypertensive encephalopathy (principal); I16.1 Hypertensive emergency; I69.351 Hemiplegia and hemiparesis following cerebral infarction affecting right dominant side; C61 Malignant neoplasm of prostate; G62.9 Polyneuropathy, unspecified; E78.5 Hyperlipidemia, unspecified; I10 Essential (primary) hypertension; R26.9 Unspecified abnormalities of gait and mobility; M19.90 Unspecified osteoarthritis, unspecified site; Z80.42 Family history of malignant neoplasm of prostate; Z82.49 Family history of ischemic heart disease and other diseases of the circulatory system; Z85.46 Personal history of malignant neoplasm of prostate; Z86.73 Personal history of transient ischemic attack (TIA), and cerebral infarction without residual deficits; Z90.49 Acquired absence of other specified parts of digestive tract; R26.89 Other abnormalities of gait and mobility
CPT/HCPCS: 36415; 70450; 70551; 71010; 80048; 80053; 82553; 82607; 82746; 84439; 84443; 84484; 85025; 85610; 85651; 85730; 86140; 86593; 93005; 96361; 96374; J2405; J7030; 99285-25